=== PATIENT | female | born 1990 | race Caucasian/White ===

== ENCOUNTER 2018-09-18 00:19 | Emergency (ER) | payer SELFPAY ==
[2018-09-18] MEDS ORDERED: ONDANSETRON 4 MG/2 ML VIAL ONE (01:00)
[2018-09-18] MEDS ORDERED: NA CHLORIDE 0.9% 1,000 ML ONE (01:00)
[2018-09-18] MEDS ORDERED: KETOROLAC 30 MG/ML INJ ONE (01:20)
[2018-09-18] MEDS ORDERED: PROMETHAZINE 25 MG/ML VIAL ONE (01:42)
--- NOTE | 2018-09-18 01:43 | ER ---
Nurse's Notes [facility] Name: Kallie Alonso Age: 28 yrs Sex: Female : 1990 Arrival Date: 09/18/2018 Time: 00:33 Bed 5 Private MD: Diagnosis: Viral agents as the cause of diseases classified elsewhere;Vomiting Presentation: 09/18 00:34 Presenting complaint: Patient states: nauseated and vomiting since yesterday,vomiting tl2 increased today,reports diarrhea since this morning. Transition of care: patient was not received from another setting of care. Onset of symptoms was September 16, 2018. Risk Assessment: Do you want to hurt yourself or someone else? Patient reports no desire to harm self or others. Initial Sepsis Screen: Does the patient meet any 2 criteria? No. Patient's initial sepsis screen is negative. Does the patient have a suspected source of infection? No. Patient's initial sepsis screen is negative. Care prior to arrival: None. 00:34 Method Of Arrival: Ambulatory tl2 00:34 Acuity: DEBI 3 tl2 Triage Assessment: 00:37 General: Appears in no apparent distress. uncomfortable, Behavior is calm, cooperative, tl2 appropriate for age. Pain: Complains of pain in abdomen. Neuro: Level of Consciousness is awake, alert, obeys commands, Oriented to person, place, time, situation. Cardiovascular: Denies chest pain. Respiratory: Airway is patent Respiratory effort is even, unlabored, Respiratory pattern is regular, symmetrical. GI: Reports lower abdominal pain, upper abdominal pain, diarrhea, nausea, vomiting. : No signs and/or symptoms were reported regarding the genitourinary system. Derm: Skin is pink, warm \T\ dry. flushed. Historical: - Allergies: 00:37 Ceclor; tl2 00:37 Pediazole; tl2 - Home Meds: 00:37 Zoloft 100 mg Oral tab 1 tab once daily [Active]; Allergy Medicine oral oral [Active]; tl2 - PMHx: 00:37 Anxiety; tl2 - PSHx: 00:37 sinus; tl2 - Immunization history:: Adult Immunizations up to date. - Social history:: Smoking status: Patient/guardian denies using tobacco. - Ebola Screening: : No symptoms or risks identified at this time. - Family history:: not pertinent. - Hospitalizations: : No recent hospitalization is reported. - History obtained from: . Screenin:18 Abuse screen: Denies threats or abuse. Nutritional screening: No deficits noted. tl2 Tuberculosis screening: No symptoms or risk factors identified. Fall Risk None identified. Assessment: 01:18 General: see triage assessment. tl2 01:37 Reassessment: Patient appears in no apparent distress at this time. Patient and/or tl2 family updated on plan of care and expected duration. Pain level reassessed. Patient is alert, oriented x 3, equal unlabored respirations, skin warm/dry/pink. 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 01:57 Reassessment: Patient appears in no apparent distress at this time. Patient and/or tl2 family updated on plan of care and expected duration. Pain level reassessed. Patient is alert, oriented x 3, equal unlabored respirations, skin warm/dry/pink. Will discharge after completion of fluids Patient states feeling better. 02:46 Reassessment: Patient appears in no apparent distress at this time. Patient and/or tl2 family updated on plan of care and expected duration. Pain level reassessed. Patient is alert, oriented x 3, equal unlabored respirations, skin warm/dry/pink. Pt verbalized understanding of discharge instructions, need for follow up and prescription usage Patient states feeling better. Vital Signs: 00:37 BP 114 / 74; Pulse 83; Resp 18; Temp 97.7(O); Pulse Ox 98% on R/A; Weight 81.65 kg; tl2 Height 5 ft. 6 in. (167.64 cm); Pain 5/10; 00:37 Body Mass Index 29.05 (81.65 kg, 167.64 cm) tl2 ED Course: 00:33 Patient arrived in ED. tl2 00:35 Triage completed. tl2 00:37 Arm band placed on right wrist. tl2 00:40 Daria Araujo FNP is PHCP. kav 00:40 Jacky Foley MD is Attending Physician. kav 01:13 Jenniffer Jade RN is Primary Nurse. tl2 01:13 Inserted saline lock: 22 gauge in left antecubital area, using aseptic technique. Blood tl2 collected. 01:18 Patient has correct armband on for positive identification. Bed in low position. Call tl2 light in reach. Side rails up X 1. Adult w/ patient. 02:46 No provider procedures requiring assistance completed. IV discontinued, intact, tl2 bleeding controlled, No redness/swelling at site. Pressure dressing applied. Administered Medications: 01:09 Drug: NS 0.9% 1000 ml Route: IV; Rate: 1000 ml; Site: left antecubital; tl2 02:47 Follow up: IV Intake: 1000ml tl2 02:47 Follow up: IV Status: Completed infusion; IV Intake: 1000ml tl2 01:09 Drug: Zofran 4 mg Route: IVP; Site: left antecubital; tl2 01:20 Follow up: Response: No adverse reaction; Nausea is decreased tl2 01:13 Drug: TORadol 30 mg Route: IVP; Site: left antecubital; tl2 01:30 Follow up: Response: No adverse reaction; Pain is decreased tl2 01:36 Drug: Phenergan 25 mg Route: IVP; Site: left antecubital; tl2 02:47 Follow up: Response: No adverse reaction; Nausea is decreased tl2 Intake: 02:47 IV: 1000ml; Total: 1000ml. tl2 02:47 IV: 1000ml; Total: 2000ml. tl2 Outcome: 01:42 Discharge ordered by . kwaku 02:46 Discharged to home ambulatory, with family. tl2 02:46 Condition: stable 02:46 Discharge instructions given to patient, family, Instructed on discharge instructions, follow up and referral plans. medication usage, Demonstrated understanding of instructions, follow-up care, medications, Prescriptions given X 1. 02:48 Patient left the ED. tl2 Signatures: Daria Araujo, FIRE WATCHER Jenniffer Bae, RN RN tl2
--- NOTE | 2018-09-18 01:43 | EDPHYS ---
Physician Documentation [facility] Name: Kallie Alonso Age: 28 yrs Sex: Female : 1990 Arrival Date: 09/18/2018 Time: 00:33 Bed 5 Private MD: ED Physician Jacky Foley HPI: 09/18 00:44 This 28 yrs old Female presents to ER via Ambulatory with complaints of vomiting. kav 00:44 The patient presents to the emergency department with nausea, vomiting, 8 times today, kav described as clear fluid. Onset: The symptoms/episode began/occurred acutely. Possible causes: sick contacts, viral illness. Severity of symptoms: At their worst the symptoms were moderate this morning. The patient has not experienced similar symptoms in the past. The patient has not recently seen a physician. sick contacts at home. Historical: - Allergies: 00:37 Ceclor; tl2 00:37 Pediazole; tl2 - Home Meds: 00:37 Zoloft 100 mg Oral tab 1 tab once daily [Active]; Allergy Medicine oral oral [Active]; tl2 - PMHx: 00:37 Anxiety; tl2 - PSHx: 00:37 sinus; tl2 - Immunization history:: Adult Immunizations up to date. - Social history:: Smoking status: Patient/guardian denies using tobacco. - Ebola Screening: : No symptoms or risks identified at this time. - Family history:: not pertinent. - Hospitalizations: : No recent hospitalization is reported. - History obtained from: . ROS: 00:45 Constitutional: Negative for fever, chills, and weight loss, Eyes: Negative for injury, kav pain, redness, and discharge, ENT: Negative for injury, pain, and discharge, Neck: Negative for injury, pain, and swelling, Cardiovascular: Negative for chest pain, palpitations, and edema, Respiratory: Negative for shortness of breath, cough, wheezing, and pleuritic chest pain, Back: Negative for injury and pain, : Negative for injury, bleeding, discharge, and swelling, MS/Extremity: Negative for injury and deformity, Skin: Negative for injury, rash, and discoloration, Neuro: Negative for headache, weakness, numbness, tingling, and seizure, Psych: Negative for depression, anxiety, suicide ideation, homicidal ideation, and hallucinations, Allergy/Immunology: Negative for hives, rash, and allergies, Endocrine: Negative for neck swelling, polydipsia, polyuria, polyphagia, and marked weight changes, Hematologic/Lymphatic: Negative for swollen nodes, abnormal bleeding, and unusual bruising. 00:45 Abdomen/GI: Positive for abdominal pain, nausea, vomiting. Exam: 00:45 Constitutional: This is a well developed, well nourished patient who is awake, alert, kav and in no acute distress. Head/Face: Normocephalic, atraumatic. Eyes: Pupils equal round and reactive to light, extra-ocular motions intact. Lids and lashes normal. Conjunctiva and sclera are non-icteric and not injected. Cornea within normal limits. Periorbital areas with no swelling, redness, or edema. ENT: Nares patent. No nasal discharge, no septal abnormalities noted. Tympanic membranes are normal and external auditory canals are clear. Oropharynx with no redness, swelling, or masses, exudates, or evidence of obstruction, uvula midline. Mucous membranes moist. Neck: Trachea midline, no thyromegaly or masses palpated, and no cervical lymphadenopathy. Supple, full range of motion without nuchal rigidity, or vertebral point tenderness. No Meningismus. Chest/axilla: Normal chest wall appearance and motion. Nontender with no deformity. No lesions are appreciated. Cardiovascular: Regular rate and rhythm with a normal S1 and S2. No gallops, murmurs, or rubs. Normal PMI, no JVD. No pulse deficits. Respiratory: Lungs have equal breath sounds bilaterally, clear to auscultation and percussion. No rales, rhonchi or wheezes noted. No increased work of breathing, no retractions or nasal flaring. Back: No spinal tenderness. No costovertebral tenderness. Full range of motion. Skin: Warm, dry with normal turgor. Normal color with no rashes, no lesions, and no evidence of cellulitis. MS/ Extremity: Pulses equal, no cyanosis. Neurovascular intact. Full, normal range of motion. Neuro: Awake and alert, GCS 15, oriented to person, place, time, and situation. Cranial nerves II-XII grossly intact. Motor strength 5/5 in all extremities. Sensory grossly intact. Cerebellar exam normal. Normal gait. Psych: Awake, alert, with orientation to person, place and time. Behavior, mood, and affect are within normal limits. 00:45 Abdomen/GI: Inspection: abdomen appears normal, Bowel sounds: normal, Palpation: abdomen is soft and non-tender, in all quadrants. Vital Signs: 00:37 BP 114 / 74; Pulse 83; Resp 18; Temp 97.7(O); Pulse Ox 98% on R/A; Weight 81.65 kg; tl2 Height 5 ft. 6 in. (167.64 cm); Pain 5/10; 00:37 Body Mass Index 29.05 (81.65 kg, 167.64 cm) tl2 MDM: 00:43 Medical screening is not applicable. ka 00:45 Data reviewed: vital signs, nurses notes. [facility] 09[facility]18 00:42 Order name: Influenza Screen (a \T\ B); Complete Time: 01:29 [facility] 12 01:29 Interpretation: Within normal limits. ka Administered Medications: 01:09 Drug: NS 0.9% 1000 ml Route: IV; Rate: 1000 ml; Site: left antecubital; tl2 02:47 Follow up: IV Intake: 1000ml tl2 02:47 Follow up: IV Status: Completed infusion; IV Intake: 1000ml tl2 01:09 Drug: Zofran 4 mg Route: IVP; Site: left antecubital; tl2 01:20 Follow up: Response: No adverse reaction; Nausea is decreased tl2 01:13 Drug: TORadol 30 mg Route: IVP; Site: left antecubital; tl2 01:30 Follow up: Response: No adverse reaction; Pain is decreased tl2 01:36 Drug: Phenergan 25 mg Route: IVP; Site: left antecubital; tl2 02:47 Follow up: Response: No adverse reaction; Nausea is decreased tl2 Disposition: 06:39 Co-signature as Attending Physician, Jacky Foley MD I agree with the assessment and alexx plan of care. Disposition: 09/18/18 01:42 Discharged to Home. Impression: Viral agents as the cause of diseases classified elsewhere, Vomiting. - Condition is Stable. - Discharge Instructions: Nausea and Vomiting, Adult, [id number]. - Prescriptions for Zofran 4 mg Oral Tablet - take 1 tablet by ORAL route every 12 hours As needed; 20 tablet. - Medication Reconciliation Form, Thank You Letter form. - Follow up: Private Physician; When: 2 - 3 days; Reason: Recheck today's complaints, Continuance of care, Re-evaluation by your physician. - Problem is new. - Symptoms have improved. - Notes: Ensure adequate hydration: Pedialyte and/or 1/2 H20 w/ 1/2 Gatorade Signatures: Dispatcher [employer] EDMS Jacky Foley, Daria Fan MD, cha, CHINESE MEDICINE PRACTITIONER [employer] MEDICINE PRACTITIONER Jenniffer Riley, RN RN tl2 Corrections: (The following items were deleted from the chart) 01:55 00:42 COMPREHENSIVE METABOLIC PANEL+C.LAB.BRZ ordered. EDMS EDMS 01:56 00:42 CBC+H.LAB.BRZ ordered. EDMS EDMS 02:48 01:42 09/18/2018 01:42 Discharged to Home. Impression: Viral agents as the cause of tl2 diseases classified elsewhere; Vomiting. Condition is Stable. Discharge Instructions: Nausea and Vomiting, Adult, [id number]. Prescriptions for Zofran 4 mg Oral Tablet - take 1 tablet by ORAL route every 12 hours As needed; 20 tablet. and Forms are Medication Reconciliation Form, Thank You Letter, Antibiotic Education, Prescription Opioid Use. Follow up: Private Physician; When: 2 - 3 days; Reason: Recheck today's complaints, Continuance of care, Re-evaluation by your physician. Problem is new. Symptoms have improved. kwaku
== END 2018-09-18 02:48 | disposition home or self-care (01) ==
LOC: ER 00:19
DX: B97.89 Other viral agents as the cause of diseases classified elsewhere (principal); F41.9 Anxiety disorder, unspecified; Z88.8 Allergy status to other drugs, medicaments and biological substances
CPT/HCPCS: 87804; 96361; 96374; 96375; 99284; J2405; J2550; J7030